=== PATIENT | male | born 1965 | race Caucasian/White ===

== ENCOUNTER 2017-05-08 14:08 | Emergency (ER) | payer MEDICARE, OTHER ==
[~2017-05-08] VITALS: Ht 172.7 cm; Wt 81.6 kg
[2017-05-08] MEDS ORDERED: ONDANSETRON HCL/PF 4 MG/2 ML VIAL IVP ONE (14:30)
[2017-05-08] MEDS ORDERED: IPRATROPIUM NEB FS 0.5 MG/2.5 ML AMPUL.NEB NEB ONE (14:30)
[2017-05-08] MEDS ORDERED: ASPIRIN 325 MG TABLET ONE (14:30)
[2017-05-08] MEDS ORDERED: ASPIRIN 325 MG TABLET PO ONE (14:30)
[2017-05-08] MEDS ORDERED: IV NS 0.9% 1,000 ML BAG IV ONE (14:30)
[2017-05-08] MEDS ORDERED: ALBUTEROL FS 2.5 MG/0.5 ML VIAL.NEB NEB ONE ×2 (14:30→16:30)
[2017-05-08] MEDS ORDERED: IPRATROPIUM NEB FS 0.5 MG/2.5 ML AMPUL.NEB ONE (14:34)
[2017-05-08] MEDS ORDERED: ALBUTEROL FS 2.5 MG/3 ML VIAL.NEB ONE ×2 (14:34→16:44)
--- NOTE | 2017-05-08 14:37 | NUR ---
pt rec'd medication as ordered
[2017-05-08 14:38] LABS: BASOPHILS # (AUTO) 0.2 /CMM (0.0-0.2); BASOPHILS % (AUTO) 3.3 % (0.0-2.0); EOSINOPHILS # (AUTO) 0.6 /CMM (0.0-0.7); EOSINOPHILS % (AUTO) 7.7 % (0.0-6.0); HEMATOCRIT 40 % (39-51); HEMOGLOBIN 13.6 g/dL (13.5-17.5); LYMPHOCYTES # (AUTO) 1.6 /CMM (0.8-4.8); LYMPHOCYTES % (AUTO) 21.3 % (20.0-44.0); MEAN CORPUSCULAR HEMOGLOBIN 29 PG (26.0-33.0); MEAN CORPUSCULAR HGB CONC 34 g/dl (31.0-36.0); MEAN CORPUSCULAR VOLUME 84 fL (80-96); MONOCYTES # (AUTO) 0.6 /CMM (0.1-1.30); MONOCYTES % (AUTO) 8.6 % (2.0-12.0); NEUTROPHILS # (AUTO) 4.5 /CMM (1.8-8.9); NEUTROPHILS % (AUTO) 59.1 % (43.0-81.0); PLATELET COUNT (AUTO) 166 /CMM (150-450); RDW COEFFICIENT OF VARIATION 12.5 (11.5-15.0); WHITE BLOOD COUNT (AUTO) 7.5 K/uL (4.3-11.0)
--- NOTE | 2017-05-08 14:38 | NUR ---
pt is on a breathing tx.
[2017-05-08] MEDS ORDERED: ONDANSETRON HCL/PF 4 MG/2 ML VIAL ONE (14:41)
[2017-05-08 14:49] LABS: CARBON DIOXIDE 29 mmol/L (21-32); CHLORIDE 104 mmol/L (98-107); CREATININE 0.9 mg/dL (0.6-1.3); GLUCOSE 175 mg/dL (74-106); POTASSIUM 3.7 mmol/L (3.5-5.1); SODIUM SERUM 138 mmol/L (136-145); UREA NITROGEN, BLOOD 19 mg/dL (7-18)
[2017-05-08 14:52] LABS: INR 0.94 (0.85-1.15)
[2017-05-08 14:58] LABS: TROPONIN I < 0.017 ng/mL (0.00-0.056)
[2017-05-08 15:03] LABS: ALANINE AMINOTRANSFERASE 37 U/L (12-78); ALBUMIN 3.5 g/dL (3.4-5.0); ALKALINE PHOSPHATASE 132 U/L (46-116); ASPARTATE AMINOTRANSFERASE 42 U/L (15-37); B-TYPE NATRIURETIC PEPTIDE 70 PG/ML (0-125); BILIRUBIN,DIRECT 0.1 mg/dL (0.0-0.2); BILIRUBIN,TOTAL 0.5 mg/dL (0.2-1.0); TOTAL PROTEIN, SERUM 7.3 g/dL (6.4-8.2)
[2017-05-08] MEDS ORDERED: predniSONE 20 MG TABLET PO ONE (16:30)
[2017-05-08] MEDS ORDERED: predniSONE 20 MG TABLET ONE (16:38)
--- NOTE | 2017-05-08 16:47 | NUR ---
PT IS ON A BREATHING TX.
--- NOTE | 2017-05-08 16:47 | NUR ---
PT REC'D MEDICATION ORDERED.
[2017-05-08 17:40] VITALS: BP 136/77
--- NOTE | 2017-05-08 17:49 | NUR ---
IV removed. Catheter intact and site benign. Pressure and 4x4 applied to site. No bleeding noted.Patient discharged to home in stable condition. Written and verbal after care instructions given. Patient verbalizes understanding of instruction.
== END 2017-05-08 17:52 | disposition home or self-care (01) ==
LOC: ER 14:10
DX: R06.02 Shortness of breath (principal); E11.9 Type 2 diabetes mellitus without complications; F17.210 Nicotine dependence, cigarettes, uncomplicated; Z79.4 Long term (current) use of insulin
CPT/HCPCS: 36415; 71045-TC; 80048-TC; 80076-TC; 83880; 84484-TC; 85025-TC; 85730-TC; A4606; J2405; J7030; Z7610

== ENCOUNTER 2017-07-01 00:21 | Inpatient (IN) | payer MEDICARE, OTHER ==
[~2017-07-01] VITALS: Ht 177.8 cm; Wt 84.4 kg
--- NOTE | 2017-07-01 00:32 | NUR ---
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 PT ALSO STATES "I CANT STOP SHAKING". UPON ARRIVAL PT DENIED ANY NUMBNESS, TINGLING, OR SLURRED SPEECH. PT IS AAOX4. SKIN WNL. PT ABLE TO MOVE ALL EXTREMITIES AND STATES EQUAL SENSATIONS BILATERALLY. RESP EVEN AND UNLABORED. NO S/S OF ACUTE DISTRESS NOTED. VSS. PT GOWNED AND PLACED ON MONITOR AND POX. PT SAFETY AND COMOFRT MEASURES IN PLACE. CALL LIGHT PLACED WITHIN REACH. AWAITING MD FOR EVAL
--- NOTE | 2017-07-01 01:15 | NUR ---
PT TO CT
--- NOTE | 2017-07-01 01:29 | NUR ---
Patient is resting comfortably in bed with eyes closed. Easily aroused. VSS. NO S/S OF PT DISCOMFORT NOTED
--- NOTE | 2017-07-01 01:32 | NUR ---
PT BACK FROM CT
--- NOTE | 2017-07-01 01:39 | NUR ---
PHLEBOTOM BEDSIDE FOR BLOOD DRAW
[2017-07-01 02:03] LABS: BASOPHILS # (AUTO) 0.1 /CMM (0.0-0.2); BASOPHILS % (AUTO) 0.9 % (0.0-2.0); EOSINOPHILS # (AUTO) 0.7 /CMM (0.0-0.7); EOSINOPHILS % (AUTO) 7.6 % (0.0-6.0); HEMATOCRIT 36 % (39-51); HEMOGLOBIN 12.2 g/dL (13.5-17.5); LYMPHOCYTES # (AUTO) 1.4 /CMM (0.8-4.8); LYMPHOCYTES % (AUTO) 15.7 % (20.0-44.0); MEAN CORPUSCULAR HEMOGLOBIN 29 PG (26.0-33.0); MEAN CORPUSCULAR HGB CONC 34 g/dl (31.0-36.0); MEAN CORPUSCULAR VOLUME 85 fL (80-96); MONOCYTES # (AUTO) 0.8 /CMM (0.1-1.30); NEUTROPHILS # (AUTO) 5.9 /CMM (1.8-8.9); NEUTROPHILS % (AUTO) 66.8 % (43.0-81.0); PLATELET COUNT (AUTO) 176 /CMM (150-450); RED BLOOD CELL COUNT(AUTO) 4.25 MIL/uL (4.5-6.0); WHITE BLOOD COUNT (AUTO) 8.9 K/uL (4.3-11.0)
[2017-07-01 02:10] LABS: CALCIUM, SERUM 8.3 mg/dL (8.5-10.1); CARBON DIOXIDE 25 mmol/L (21-32); CHLORIDE 104 mmol/L (98-107); CREATININE 0.9 mg/dL (0.6-1.3); GLUCOSE 157 mg/dL (74-106); POTASSIUM 3.7 mmol/L (3.5-5.1); SODIUM SERUM 139 mmol/L (136-145); UREA NITROGEN, BLOOD 18 mg/dL (7-18)
[2017-07-01 02:13] LABS: INR 0.95 (0.87-1.13)
[2017-07-01 02:17] LABS: ALANINE AMINOTRANSFERASE 27 U/L (12-78); ALBUMIN 3.3 g/dL (3.4-5.0); ALKALINE PHOSPHATASE 120 U/L (46-116); ASPARTATE AMINOTRANSFERASE 27 U/L (15-37); BILIRUBIN,DIRECT 0.1 mg/dL (0.0-0.2); BILIRUBIN,TOTAL 0.5 mg/dL (0.2-1.0); TOTAL PROTEIN, SERUM 6.7 g/dL (6.4-8.2)
[2017-07-01 02:18] LABS: TROPONIN I < 0.017 ng/mL (0.00-0.056)
[2017-07-01 02:35] LABS: CHOLESTEROL 201 mg/dL (<200); HDL CHOLESTEROL 80 mg/dL (40-60); LDL 101 mg/dL (0-99); TRIGLYCERIDES 138 mg/dL (30-150)
--- NOTE | 2017-07-01 02:55 | NUR ---
Patient is resting comfortably in bed with eyes closed. Easily aroused. VSS
[2017-07-01] MEDS ORDERED: MAGNESIUM HYDROXIDE 30 ML UDC PO PRN (04:00)
[2017-07-01] MEDS ORDERED: ONDANSETRON HCL/PF 4 MG/2 ML VIAL IVP PRN (04:00)
[2017-07-01] MEDS ORDERED: ACETAMINOPHEN 325 MG TABLET PO PRN (04:00)
[2017-07-01] MEDS ORDERED: ZOLPIDEM TARTRATE 5 MG TABLET PO PRN (04:00)
[2017-07-01] MEDS ORDERED: Z GUARD REMEDY 2 OZ OINT TP PRN (04:00)
[2017-07-01] MEDS ORDERED: ASPIRIN 325 MG TABLET ONE (04:00)
[2017-07-01] MEDS ORDERED: HYDROCODONE/APAP 5/325MG 1 EACH TABLET PO PRN (04:00)
[2017-07-01] MEDS ORDERED: MAG HYDROX/AL HYDROX/SIMETH 30 ML UDC PO PRN (04:00)
[2017-07-01] MEDS ORDERED: ASPIRIN 325 MG TABLET PO ONE (04:00)
--- NOTE | 2017-07-01 04:00 | NUR ---
REPORT GIVEN TO INFORMATICS APPLICATION ANALYST RUMI FOR ROLANDO.
--- NOTE | 2017-07-01 04:11 | NUR ---
PT TRANSFERRED TO TELE FLOOR BY EMT AND TIERA Gupta
[2017-07-01 04:15] VITALS: BP 147/87
--- NOTE | 2017-07-01 04:15 | NUR ---
SURVEY OPERATIONS DIRECTORSALES PERSON NOTES ADMITTED 51 YO MALE PT, ALERT, AWAKE, VERBALLY RESPONSIVE, ON ROOM AIR, RESPIRATIONS EVEN, UNLABORED, NO APPARENT DISTRESS NOTED. DENIES ANY PAIN OR DISCOMFORT AT THIS TIME, NO C/O OF NUMBNESS. IV SITE LT HAND INTACT, PATENT. BODY ASSESSMENT DONE, NO SKIN BREAKDOWN NOTED. CALL LIGHT WITHIN REACH, BED LOCKED IN LOWEST POSITION. KEPT CLEAN AND COMFORTABLE, ATTENDED ALL NEEDS. WILL CONTINUE TO MONITOR ACCORDINGLY.
[2017-07-01 05:00] VITALS: BP 147/87
--- NOTE | 2017-07-01 06:36 | NUR ---
BOAT GARNISHER CLOSING NOTES PT IN BED, RESTING COMFORTABLY, ON ROOM AIR, RESPIRATIONS EVEN, UNLABORED, NO APPARENT DISTRESS NOTED. IV SITE LT HAND INTACT, PATENT. DENIES ANY PAIN OR DISCOMFORT AT THIS TIME. NSR 78. CALL LIGHT WITHIN REACH, BED LOCKED IN LOWEST POSITION. ATTENDED ALL NEEDS. WILL CONTINUE TO MONITOR ACCORDINGLY.
--- NOTE | 2017-07-01 07:26 | NUR ---
TEXTED DR. ASHLEY FOR MRI APPROVAL.
--- NOTE | 2017-07-01 07:27 | NUR ---
DR. ASHLEY TEXTED BACK, ON HOLD FOR NOW,HE WILL LET US KNOW.
[2017-07-01 08:00] VITALS: BP 143/74
[2017-07-01] MEDS ORDERED: RISP4TAB17 PO (08:17)
[2017-07-01] MEDS ORDERED: METF850T2 PO (08:17)
[2017-07-01] MEDS ORDERED: DULO30CA2 PO (08:17)
[2017-07-01] MEDS ORDERED: PERP4TAB11 PO (08:17)
[2017-07-01] MEDS ORDERED: ENAL2.5T PO (08:17)
[2017-07-01] MEDS ORDERED: MIRT30TA7 PO (08:17)
[2017-07-01] MEDS ORDERED: INSU100I19 SQ (08:17)
--- NOTE | 2017-07-01 11:00 | NUR ---
RN ASKED TAPE EDGE MACHINE OPERATOR OMAR TERRY FOR STATIN ORDER.LDL 101.
[2017-07-01 16:00] VITALS: BP 144/77
[2017-07-01] MEDS: METFORMIN 850 MG TABLET PO SCH (17:28)
--- NOTE | 2017-07-01 18:00 | NUR ---
multiple tests done,soc. service in,ash conveyor operator in from day care center pt. visits.
--- NOTE | 2017-07-01 19:40 | NUR ---
MS RN OPENING NOTES PT IN BED ALERT, AWAKE, VERBALLY RESPONSIVE, ON ROOM AIR RESPIRATIONS EVEN, UNLABORED, NO APPARENT DISTRESS NOTED.DENIES ANY PAIN OR DISCOMFORT AT THIS TIME. IV SITE LT HAND INTACT, PATENT. CALL LIGHT WITHIN REACH, ATTENDED ALL NEEDS. BED LOCKED IN LOWEST POSITION. WILL CONTINUE TO MONITOR ACCORDINGLY.
[2017-07-01 20:00] VITALS: BP 143/8
[2017-07-01 22:00] VITALS: BP 143/76
[2017-07-01] MEDS ORDERED: MIRTAZAPINE 15 MG TABLET PO SCH (22:00)
[2017-07-01] MEDS ORDERED: ATORVASTATIN 40 MG TABLET PO SCH (22:00)
[2017-07-01] MEDS ORDERED: INSULIN GLARGINE, 100 UNIT/ML CARTRIDGE SQ SCH (22:00)
[2017-07-01] MEDS ORDERED: risperiDONE 1 MG TABLET PO SCH (22:00)
--- NOTE | 2017-07-02 06:18 | NUR ---
MS RN CLOSING NOTES PT IN BED RESTING COMFORTABLY, ON ROOM AIR RESPIRATIONS EVEN, UNLABORED, NO APPARENT DISTRESS NOTED. DENIES ANY PAIN OR DISCOMFORT, NO NUMBNESS AT THIS TIME. IV SITE LT HAND INTACT, PATENT. CALL LIGHT WITHIN REACH. BED LOCKED IN LOWEST POSITION. WILL CONTINUE TO MONITOR ACCORDINGLY.
--- NOTE | 2017-07-02 07:40 | NUR ---
RN NOTES. RECEIVED PATIENT IN BED , SLEEPING BUT EASILY [place], RESPIRATION EVEN AND UNLABORED, NO COMPLAINTS OF PAIN OR DISCOMFORT AT THIS TIME, IV LEFT HAND 20 GAUGE INTACT AND PATENT , NO REDNESS OR INFILTRATION NOTED, SAFETY MEASURES IN PLACE , CALL LIGHT KEPT WITHIN REACH. KEPT CLEAN, DRY AND COMFORTABLE, WILL CONTINUE TO MONITOR.
[2017-07-02 07:50] LABS: BASOPHILS % (AUTO) 0.5 % (0.0-2.0); EOSINOPHILS # (AUTO) 0.7 /CMM (0.0-0.7); EOSINOPHILS % (AUTO) 7.1 % (0.0-6.0); HEMATOCRIT 40 % (39-51); HEMOGLOBIN 13.1 g/dL (13.5-17.5); LYMPHOCYTES # (AUTO) 1.4 /CMM (0.8-4.8); LYMPHOCYTES % (AUTO) 14.9 % (20.0-44.0); MEAN CORPUSCULAR HEMOGLOBIN 28 PG (26.0-33.0); MEAN CORPUSCULAR HGB CONC 33 g/dl (31.0-36.0); MEAN CORPUSCULAR VOLUME 86 fL (80-96); MONOCYTES # (AUTO) 0.8 /CMM (0.1-1.30); MONOCYTES % (AUTO) 8.3 % (2.0-12.0); NEUTROPHILS # (AUTO) 6.7 /CMM (1.8-8.9); NEUTROPHILS % (AUTO) 69.2 % (43.0-81.0); PLATELET COUNT (AUTO) 177 /CMM (150-450); RDW COEFFICIENT OF VARIATION 12.8 (11.5-15.0); RED BLOOD CELL COUNT(AUTO) 4.63 MIL/uL (4.5-6.0); WHITE BLOOD COUNT (AUTO) 9.6 K/uL (4.3-11.0)
[2017-07-02 08:00] VITALS: BP 139/77
[2017-07-02 08:03] LABS: CALCIUM, SERUM 8.4 mg/dL (8.5-10.1); CREATININE 0.9 mg/dL (0.6-1.3); MAGNESIUM 1.6 mg/dL (1.8-2.4); PHOSPHORUS 3.2 mg/dL (2.5-4.9); POTASSIUM 4.3 mmol/L (3.5-5.1)
[2017-07-02] MEDS ORDERED: DULOXETINE HCL 30 MG CAPSULE.DR PO SCH (09:00)
[2017-07-02] MEDS ORDERED: ASPIRIN EC 81 MG TABLET.DR PO SCH (09:00)
[2017-07-02] MEDS ORDERED: ENALAPRIL MALEATE (5 MG) 5 MG TABLET PO SCH (09:00)
[2017-07-02] MEDS: METFORMIN 850 MG TABLET PO SCH ×2 (09:22→17:00)
[2017-07-02 09:24] VITALS: BP 139/77
[2017-07-02] MEDS: Magnesium 1GM/D5W 100ML PREMIX 100 ML IV SCH ×2 (10:56→12:49)
--- NOTE | 2017-07-02 11:45 | NUR ---
RN NOTES PER MD PATIENT TO BE ON ASPIRIN AND LIPITOR NO ANTICOAGULANT AT THIS TIME. PATIENT ON DVT PUMPS AND AMBULATORY. VTE SCORE 1 Addendum: 07/02/17 at 1146 by MILAGRO HERNANDES RN Amended: Links added.
[2017-07-02] MEDS ORDERED: ASPI-1152 PO (15:57)
[2017-07-02] MEDS ORDERED: ATOR40TA PO (15:57)
--- NOTE | 2017-07-02 16:30 | NUR ---
Manager Order consult was requested from FRUIT GRADER OPERATOR Gina Pineda in regards to homelessness. Pt is a 51 year old male who was admitted to [facility] emergency department for left-sided face and hand numbness and with a significant motor deficit. Patient currently resides in his car near [facility] ([address] [place] [address]). Patient states that when he gets discharged the sample case porter at [facility] will be setting him up with Transitional Living. Patient has no emergency contact. Pt denies any drug or alcohol use. Pt reports that he stopped smoking cigarettes since he has been in the hospital. Prior to his admission he would smoke two packs a day. Pt. reports that he has been diagnosed with schizophrenia. Pt reports he sees a psychiatrist and receives medication at [facility]. Pt is unable to recall psychiatrist name or medications taken. Patient denies suicidal and homicidal ideation. Pt denies visual hallucinations. Pt reports that he hears voices stating, You cant do anything. KIRAN provided pt. with homeless resources including food aly, shelters, and medical clinics. KIRAN provided pt. with Mental Health Resources including [facility] ([address] [place] [address]; [phone]), [facility] ([address] [place] [address]; [phone]), and [facility] ([address] [place] [address]; [phone]). KIRAN provided with tobacco cessation helplines [employer] (2-916-JJHH-[place]), [place] [employer] (4-910-NO BUTTS), and Nicotine Anonymous ( ). KIRAN spoke to TIERA Vargas in regards to pt.s disposition and discharge plan. Pt. completed Homeless Patient Waiver Form. Plan: Pt will transport himself with his car back to [facility] ([address] [place] [address]; [phone]).
--- NOTE | 2017-07-02 16:40 | NUR ---
PRODUCT INSPECTION COORDINATOR NOTES. PATIENT AWAKE ALERT AND VERBALLY RESPONSIVE, RESPIRATIONS EVEN AND UNLABORED, NO COMPLAINTS OF PAIN OR DISCOMFORT AT THIS TIME, IV LEFT HAND AND ID BAND REMOVED WITH NO ASE NOTED. PATIENT WITH DISCHARGE ORDERS, ALL DISCHARGE INSTRUCTIONS REVIEWED WITH PATIENT, VERBAL UNDERSTANDING NOTED. ALL BELONGINGS ACCOUNTED FOR. PATIENT DISCHARGED IN STABLE CONDITION, PRESCRIPTIONS GIVEN TO PATIENT
== END 2017-07-02 16:30 | disposition home or self-care (01) | DRG 66 ==
LOC: ER 00:23 → TELE 03:57 → MED 10:46
PROVIDERS: ADMIT Internal Medicine; ATTEND Internal Medicine
DX: I63.9 Cerebral infarction, unspecified (principal); E11.9 Type 2 diabetes mellitus without complications; I10 Essential (primary) hypertension; E78.5 Hyperlipidemia, unspecified; F17.210 Nicotine dependence, cigarettes, uncomplicated; J45.909 Unspecified asthma, uncomplicated; Z79.4 Long term (current) use of insulin; F99 Mental disorder, not otherwise specified; I34.0 Nonrheumatic mitral (valve) insufficiency; Z91.14 Patient's other noncompliance with medication regimen
CPT/HCPCS: 36415; 70450-TC; 70551-TC; 80048-TC; 80061-TC; 80076-TC; 80305; 82962-TC; 83735-TC; 84100-TC; 84484-TC; 85025-TC; 85730-TC; 87081-TC; 92521; 93307-TC; 93880-TC; A4606; J1815; J3475; J7050; Z7610